=== PATIENT | male | born 1985 | race Hispanic/Latino ===

== ENCOUNTER 2018-04-25 19:38 | Emergency (ER) | payer SELFPAY ==
[~2018-04-25] VITALS: Ht 167.6 cm; Wt 85.2 kg
[2018-04-25] MEDS ORDERED: ROBITUSSIN AC10 ML PO (21:18)
[2018-04-25] MEDS ORDERED: CEPHALEXIN500 M1 PO (21:18)
[2018-04-25 21:25] VITALS: BP 119/74
== END 2018-04-25 21:25 | disposition home or self-care (01) | DRG 153 ==
LOC: ED 19:38
DX: J06.9 Acute upper respiratory infection, unspecified (principal)